=== PATIENT | female | born 1985 | race Caucasian/White ===

== ENCOUNTER 2016-08-29 21:50 | Emergency (ER) | payer MEDICAID, OTHER ==
[~2016-08-29] VITALS: Ht 177.8 cm; Wt 77.1 kg
[2016-08-29] MEDS ORDERED: FAMOTIDINE (10MG/ML) 2ML VL IV ONE (22:15)
[2016-08-29] MEDS ORDERED: ONDANSETRON HCL 4 MG/2 ML VIAL IV ONE (22:15)
[2016-08-29 22:31] LABS: Basophils # (auto) 0 uL; Basophils % (auto) 0.1 % (0.0-2.0); Eosinophils # (auto) 0 uL; Eosinophils % (auto) 0.2 % (0.0-7.0); Hematocrit 49.7 % (36.0-46.0); Hemoglobin 16.8 g/dL (12.2-16.2); Lymphocytes # (auto) 0.8 uL; Mean Corpuscular Hemoglobin 30.9 pg (28.0-32.0); Mean Corpuscular Hgb Conc. 33.9 g/dL (32.0-36.0); Mean Corpuscular Volume 91.1 fL (80.0-100.0); Monocytes # (auto) 0.5 uL; Monocytes % (auto) 2.9 % (0.0-12.0); Neutrophils # (auto) 14.4 uL; Neutrophils % (auto) 91.8 % (37.0-80.0); Platelet Count (auto) 271 10^3/uL (140-450); Red Cell Distribution Width 13.8 % (11.6-16.0); SUSPECT VIEW TRANSMISSION; White Blood Cell 15.7 10^3/uL (4.4-10.8)
[2016-08-29 22:57] LABS: Urine RBC None Seen /hpf (0 - 4)
[2016-08-29 23:05] LABS: Urine Bilirubin Negative (Negative); Urine Blood TRACE /uL (Negative); Urine Color Yellow (Yellow); Urine Glucose Normal (Normal); Urine Ketone TRACE (Negative); Urine Mucus FEW (None Seen); Urine Nitrite Negative (Negative); Urine Squamous Epithelial Cell FEW /hpf (<5); Urine pH 5.5 (5.0-8.0)
[2016-08-29 23:18] LABS: Albumin 4.4 g/dL (3.4-5.0); BUN/Creatinine Ratio 8.4; Calcium 9.2 mg/dL (8.5-10.1); Potassium 3.8 mmol/L (3.5-5.1)
[2016-08-29 23:21] LABS: Total Protein 9.1 g/dL (6.4-8.2)
[2016-08-29] MEDS ORDERED: PROMETHAZINE HCL 25 MG/ML 1ML IV ONE (23:30)
[2016-08-29] MEDS ORDERED: MORPHINE SULFATE 4 MG/ML SYRG IV ONE (23:30)
[2016-08-30 00:13] LABS: Lactic Acid 3.3 mmol/L (0.4-2.0)
[2016-08-30] MEDS ORDERED: cefTRIAXone 1GM/50ML D5W 50 ML IV ONE (00:15)
[2016-08-30] MEDS ORDERED: metroNIDAZOLE 500MG/100ML 100 ML IV ONE (00:15)
[2016-08-30] MEDS ORDERED: SODIUM CHLORIDE 0.9% 1,000 ML IV ONE (00:15)
[2016-08-30 00:39] LABS: REFLEX LACTIC ACID YES OR NO YES
[2016-08-30 02:26] LABS: Lactic Acid 2.6 mmol/L (0.4-2.0)
[2016-08-30 02:34] LABS: REFLEX LACTIC ACID YES OR NO NO
[2016-08-30 05:46] VITALS: BP 112/76
== END 2016-08-30 07:18 | disposition home or self-care (01) ==
LOC: EDBD 21:50 → ER 22:03
DX: K52.9 Noninfective gastroenteritis and colitis, unspecified (principal); R10.9 Unspecified abdominal pain; K92.1 Melena; Z88.1 Allergy status to other antibiotic agents
CPT/HCPCS: 36415; 74176; 80053; 81001; 81025; 82270; 83605; 83690; 84702; 85025; 86850; 86900; 86901; 87040; 96365; 96368; 96375; 99285; J0696; J2270; J2405; J2550; J3490; J7030